=== PATIENT | male | born 1975 | race Two or more races ===

== ENCOUNTER 2021-05-07 19:36 | Emergency (ER) | payer SELFPAY ==
[~2021-05-07] VITALS: Ht 172.7 cm; Wt 84.0 kg
[2021-05-07] MEDS ORDERED: HALOPERIDOL LACTATE 5MG/ML VIAL IM ONE ×2 (19:45→23:15)
[2021-05-07 21:14] LABS: CLARITY URINE CLEAR (CLEAR); COLOR URINE YELLOW (YELLOW); KETONES URINE NEGATIVE (NEGATIVE); LEUKOCYTE ESTERASE URINE NEGATIVE (NEGATIVE); NITRITE URINE NEGATIVE (NEGATIVE); OCCULT BLOOD URINE TRACE (NEGATIVE); PH URINE 6.5 (4.5-8.0); PROTEIN URINE NEGATIVE (NEGATIVE); SPECIFIC GRAVITY URINE 1.003 (1.005-1.030); UROBILINOGEN URINE 0.2 E.U./dL (0.2-1.0)
[2021-05-07 21:26] LABS: *AMPHETAMINES SCREEN URINE NEGATIVE (NEGATIVE); *BARBITURATES SCREEN URINE NEGATIVE (NEGATIVE); *BENZODIAZEPINES SCREEN URINE NEGATIVE (NEGATIVE)
[2021-05-07 21:27] LABS: *COCAINE SCREEN URINE NEGATIVE (NEGATIVE); CANNABINOID URINE SCREEN PRESUMTIVE POSITIVE (NEGATIVE); METHADONE URINE SCREEN NEGATIVE (NEGATIVE); OPIATES URINE SCREEN NEGATIVE (NEGATIVE); PHENCYCLIDINE URINE SCREEN NEGATIVE (NEGATIVE)
[2021-05-07 23:02] LABS: BASOPHILS % 0.3 % (0.0-2.0); HEMATOCRIT. 40.8 % (42.0-52.0); HEMOGLOBIN. 13.6 g/dL (14.0-18.0); MEAN CORPUSCULAR HEMOGLOBIN 30.2 pg (28.0-32.0); MEAN CORPUSCULAR VOLUME 90.3 fL (80.0-94.0); MONOCYTES % 7.4 % (2.0-8.0); NEUTROPHILS % 44.3 % (40.0-76.0); PLATELET 336 x1000/uL (130-400); RED BLOOD CELL COUNT 4.52 mill/uL (4.7-6.1); RED CELL DISTRIBUTION WIDTH 14.4 % (11.6-14.6)
[2021-05-07 23:10] LABS: CHLORIDE 112 mEq/L (98-107)
[2021-05-07 23:18] LABS: ETHANOL BLOOD 245 mg/dL
[2021-05-08] MEDS ORDERED: MIDAZOLAM HCL 2 MG/2 ML VIAL IM ONE (00:30)
[2021-05-08 06:00] VITALS: BP 110/77
== END 2021-05-08 06:30 | disposition home or self-care (01) ==
LOC: EDBD 19:36 → ER 19:36
DX: F10.129 Alcohol abuse with intoxication, unspecified (principal); Y90.8 Blood alcohol level of 240 mg/100 ml or more; R45.1 Restlessness and agitation
CPT/HCPCS: 36415; 70450; 71045; 80053; 80305; 80320; 81003; 83690; 85025; 96372; 99285; J1630; J2250; G0480

== ENCOUNTER 2021-05-17 01:33 | Emergency (ER) | payer MEDICAID ==
[~2021-05-17] VITALS: Ht 175.3 cm; Wt 68.0 kg
[2021-05-17 01:36] VITALS: BP 138/80
[2021-05-17] MEDS ORDERED: AMOX-424 MT (02:12)
[2021-05-17] MEDS ORDERED: IBUP-2029 MT (02:12)
[2021-05-17] MEDS ORDERED: IBUPROFEN 600MG TABLET PO ONE (02:15)
[2021-05-17] MEDS ORDERED: AMOXICILLIN/POTASSIUM CLAVULANATE 875/125MG TAB PO ONE (02:15)
[2021-05-17] MEDS ORDERED: BACITRACIN 15GM TUBE TOP ONE (02:15)
== END 2021-05-17 03:23 | disposition home or self-care (01) ==
LOC: ER 02:15
DX: S81.851A Open bite, right lower leg, initial encounter (principal); Z90.49 Acquired absence of other specified parts of digestive tract; W54.0XXA Bitten by dog, initial encounter; Y93.89 Activity, other specified; Y92.89 Other specified places as the place of occurrence of the external cause; Y99.8 Other external cause status
CPT/HCPCS: 99283

== ENCOUNTER 2021-07-09 16:43 | Emergency (ER) | payer MEDICAID ==
[~2021-07-09] VITALS: Ht 170.2 cm; Wt 91.0 kg
[~2021-07-09 16:43] MED LIST: AMOX-424 MT; IBUP-2029 MT
[2021-07-09] MEDS ORDERED: SODIUM CHLORIDE 0.9% 1,000 ML IV ONE (19:45)
[2021-07-09 20:09] LABS: CLARITY URINE CLEAR (CLEAR); COLOR URINE YELLOW (YELLOW); KETONES URINE NEGATIVE (NEGATIVE); LEUKOCYTE ESTERASE URINE NEGATIVE (NEGATIVE); NITRITE URINE NEGATIVE (NEGATIVE); OCCULT BLOOD URINE NEGATIVE (NEGATIVE); PROTEIN URINE NEGATIVE (NEGATIVE); UROBILINOGEN URINE 0.2 E.U./dL (0.2-1.0)
[2021-07-09 20:11] LABS: BASOPHILS % 0.2 % (0.0-2.0); EOSINOPHILS % 6.4 % (0.0-5.0); HEMATOCRIT. 39.2 % (42.0-52.0); LYMPHOCYTES % 39.8 % (20.0-50.0); MEAN CORPUSCULAR VOLUME 90.5 fL (80.0-94.0); MEAN PLATELET VOLUME 6.2 fl (7.4-10.4); MONOCYTES % 5.2 % (2.0-8.0); NEUTROPHILS % 48.4 % (40.0-76.0); PLATELET 275 x1000/uL (130-400); RED BLOOD CELL COUNT 4.33 mill/uL (4.7-6.1); RED CELL DISTRIBUTION WIDTH 14.9 % (11.6-14.6)
[2021-07-09 20:16] LABS: CHLORIDE 114 mEq/L (98-107)
[2021-07-09 20:18] LABS: *AMPHETAMINES SCREEN URINE PRESUMTIVE POSITIVE (NEGATIVE); *BARBITURATES SCREEN URINE NEGATIVE (NEGATIVE); *BENZODIAZEPINES SCREEN URINE NEGATIVE (NEGATIVE); *COCAINE SCREEN URINE NEGATIVE (NEGATIVE); METHADONE URINE SCREEN NEGATIVE (NEGATIVE); OPIATES URINE SCREEN NEGATIVE (NEGATIVE)
[2021-07-09 20:19] LABS: CANNABINOID URINE SCREEN PRESUMTIVE POSITIVE (NEGATIVE); PHENCYCLIDINE URINE SCREEN NEGATIVE (NEGATIVE)
[2021-07-09 20:23] LABS: ETHANOL BLOOD 147 mg/dL
[2021-07-09 23:52] VITALS: BP 124/86
== END 2021-07-09 23:58 | disposition home or self-care (01) ==
LOC: ER 16:43
DX: F10.129 Alcohol abuse with intoxication, unspecified (principal); Y90.6 Blood alcohol level of 120-199 mg/100 ml; S01.81XA Laceration without foreign body of other part of head, initial encounter; W01.198A Fall on same level from slipping, tripping and stumbling with subsequent striking against other object, initial encounter; Y93.89 Activity, other specified; Y92.89 Other specified places as the place of occurrence of the external cause; Z98.890 Other specified postprocedural states
CPT/HCPCS: 36415; 70450; 72125; 80053; 80305; 80320; 81003; 85025; 96360; 99284; J7030; G0480